=== PATIENT | male | born 1945 | race Two or more races ===

== ENCOUNTER 2017-06-05 09:39 | Day surgery (SDC) | payer MEDICARE, OTHER ==
[~2017-06-05] VITALS: Ht 170.2 cm; Wt 75.3 kg
[~2017-06-05 09:39] MED LIST: HEPARIN SODIUM 5,000 UNIT in IV NORMAL SALINE 500ML BAG 500 ML IRR ONE; HYDROmorphone 2 MG/ML VIAL IV PRN; IV RINGERS,LACTATED 1000ML 1,000 ML IV SCH; LIDOCAINE 1% PF 2 ML VIAL. ID PRN; MORPHINE SULFATE 2 MG/ML DISP.SYRIN. IV PRN; ONDANSETRON PF 4 MG/2 ML VIAL. IV PRN; PROCHLORPERAZINE 10 MG/2 ML VIAL. IV PRN; ceFAZolin 2GM PREMIX 2 GM/50 ML BAG IV ONE; fentaNYL PF VIAL 100 MCG/2 ML VIAL IV PRN
[2017-06-05] MEDS ORDERED: INSU100I13 SQ (10:42)
[2017-06-05] MEDS ORDERED: ASPI-482 PO (10:43)
[2017-06-05] MEDS ORDERED: CALC500T54 PO (10:44)
[2017-06-05] MEDS ORDERED: CALC667T PO (10:44)
[2017-06-05] MEDS ORDERED: VITA1CAP PO (10:44)
[2017-06-05] MEDS ORDERED: CARV25TA2 PO (10:45)
[2017-06-05] MEDS ORDERED: ATOR40TA59 PO (10:45)
[2017-06-05] MEDS ORDERED: FURO20TA3 PO (10:46)
[2017-06-05] MEDS ORDERED: IV NORMAL SALINE 1000ML BAG 1,000 ML IV SCH (10:48)
[2017-06-05 10:57] LABS: CALCIUM 8.8 mg/dL (8.5-10.1); CREATININE 4.4 mg/dL (0.7-1.3); GFR 13.3; POTASSIUM 4.9 mmol/L (3.5-5.1)
[2017-06-05] MEDS ORDERED: BUPIVAC MPF-EPI 0.5%-1:200000 30 ML VIAL. ONE (12:06)
[2017-06-05] MEDS ORDERED: NEOMY/BACITR/POLYMYXIN OINT PACKET. TP ONE ×2 (12:06→13:11)
[2017-06-05] MEDS ORDERED: fentaNYL PF VIAL 100 MCG/2 ML VIAL ONE (12:09)
[2017-06-05] MEDS ORDERED: NEOSTIGMINE METHYLSULFATE 5 MG/5 ML SYRINGE. ONE (12:09)
[2017-06-05] MEDS ORDERED: GLYCOPYRROLATE 1 MG/5 ML VIAL. ONE (12:09)
[2017-06-05] MEDS ORDERED: ROCURONIUM 50 MG/5 ML VIAL. ONE (12:09)
[2017-06-05] MEDS ORDERED: SEVOFLURANE > 120 MINUTES. IH ONE (12:10)
[2017-06-05] MEDS ORDERED: DEXAMETHASONE SOD PHOS 20 MG/5 ML VIAL. ONE (12:10)
[2017-06-05] MEDS ORDERED: LIDOCAINE 2% PF Vial for OR 5 ML VIAL. ONE (12:10)
[2017-06-05] MEDS ORDERED: ONDANSETRON PF 4 MG/2 ML VIAL. ONE (12:10)
[2017-06-05] MEDS ORDERED: PROPOFOL 20 ML IV ONE (12:10)
--- NOTE | 2017-06-05 13:40 | PDOC ---
BRIEF OPERATIVE NOTE Date: Jun 05, 2017 Pre-Op Diagnosis ESRD on hemodialysis, requesting a PD catheter Post-Op Diagnosis same Procedure Performed l/s placement of PD catheter Surgeon Bo Anesthesia Type: General Blood Loss 10cc IV Fluid 300cc Urine Output 75cc Specimens Obtained none Findings no adhesions Complications none Operative Note WK # [id number] VIVI HART MD Jun 05, 2017 13:40
--- NOTE | 2017-06-05 13:41 | DISCH ---
DISCHARGE INSTRUCTIONS Condition on Discharge Condition on Discharge: Stable Activity After Discharge Activity Instructions for Disc: Activity as tolerated, Avoid exertion Lifting Instructions after Dis: No heavy lifting Driving Instructions after Dis: Do not drive Diet after Discharge Diet after Discharge: Renal Dialysis Wound Incision Care Wound/Incision Care: Ice to area for comfort, Keep wound/cast CDI Follow-Up Follow up with: Bo two weeks VIVI HART MD Jun 05, 2017 13:41
--- NOTE | 2017-06-05 14:01 | OP ---
DATE OF SURGERY: 06/05/2017 PREOPERATIVE DIAGNOSIS: End-stage renal disease on hemodialysis, requesting peritoneal dialysis catheter. POSTOPERATIVE DIAGNOSIS: End-stage renal disease on hemodialysis, requesting peritoneal dialysis catheter. PROCEDURE: Laparoscopic placement of peritoneal dialysis catheter. SURGEON: Jonathan Hart MD. ANESTHESIA: General. ESTIMATED BLOOD LOSS: Less than 10 mL. INTRAVENOUS FLUID: 300 mL. URINE OUTPUT: 75 mL. INDICATIONS: The patient is a 71-year-old gentleman, on hemodialysis, requesting peritoneal dialysis catheter. OPERATIVE FINDINGS: Visual inspection of the abdomen laparoscopically showed no evidence of adhesions or pathologic abnormality. DESCRIPTION OF PROCEDURE: The patient brought to the operating suite, given a general endotracheal anesthetic and the Davalos catheter placed to dependent drainage. The abdomen was prepped and draped in usual sterile fashion. An epigastric incision was infiltrated with 0.5% Marcaine with epinephrine. A small incision made and a 5 mm Visiport used to safely gain access into the abdominal cavity. Pneumoperitoneum established at a maximum of 12 cm water pressure. Inspection carried out with results as noted above. Prior to insufflation of the abdomen, the template has been used to nicole the insertion site and access site for the catheter. The insertion site was infiltrated with local anesthetic, sharply incised and under direct vision, the Cook needle passed into the abdominal cavity. The needle was removed and the sheath was dilated. The catheter was then threaded through the sheath and the Dacron cuff was seated just above the peritoneum. The catheter was then tunneled subcutaneously through the access site, securing the second Dacron cuff in the subcutaneous tissue. Abdomen decompressed and the catheter was irrigated with 500 mL of normal saline, which are readily accepted. It drained a similar amount to dependent drainage. The catheter was then "packed" with heparinized saline. Skin incisions were closed with subcutaneous 3-0 Vicryl and the subcutaneous tissue followed by subcuticular 4-0 Monocryl and Steri-Strips for the skin. Sterile dressings applied. Davalos catheter was removed. The patient was awakened from his anesthetic and taken to the recovery room in satisfactory condition. JONATHAN HART MD DR: DOUG/monica JOB#: [id number] / [id number] JEFF Muñoz MD
[2017-06-05] MEDS ORDERED: diphenhydrAMINE 50 MG/ML VIAL ONE (14:15)
[2017-06-05] MEDS ORDERED: HYDR-971 PO (14:22)
[2017-06-05 14:25] VITALS: BP 179/56
[2017-06-05] MEDS ORDERED: DOCU100C28 PO (14:25)
[2017-06-05] MEDS ORDERED: diphenhydrAMINE HCL 25 MG CAPSULE PO PRN (14:30)
[2017-06-05] MEDS ORDERED: HYDROcodone/APAP 5/325MG 1 TAB TABLET PO PRN (14:45)
== END 2017-06-05 15:21 | disposition home or self-care (01) ==
LOC: SURG 09:39
PROVIDERS: ATTEND Surgery
DX: I12.0 Hypertensive chronic kidney disease with stage 5 chronic kidney disease or end stage renal disease (principal); E11.22 Type 2 diabetes mellitus with diabetic chronic kidney disease; N18.6 End stage renal disease; Z99.2 Dependence on renal dialysis; Z86.69 Personal history of other diseases of the nervous system and sense organs; E78.00 Pure hypercholesterolemia, unspecified; Z87.39 Personal history of other diseases of the musculoskeletal system and connective tissue; Z72.89 Other problems related to lifestyle; Z88.2 Allergy status to sulfonamides
CPT/HCPCS: 36415; 49324; 80048; 82962; C1769; J0690; J1100; J1200; J1644; J2405; J2704; J2710; J3010; J3490; J7030; J7040; J2001

== ENCOUNTER → 2019-12-25 | Outpatient (CLI) | payer MEDICARE, OTHER ==
[2019-04-15 11:18] VITALS: BP 145/69
[~2019-12-25] MED LIST changes: +ACET325T9 PO; +ACET650S PO; +AMLO10TA8 PO; +ASPI-482 PO; +ATOR20TA58 PO; +ATOR40TA59 PO; +CALC500T54 PO; +CALC667T4 PO; +CARV25TA PO; +CARV25TA2 PO; +CARV6.2511 PO; +DEXT38GE2 PO; +DEXT50IV12 IV; +DOCU100C28 PO; +FOLI0.8T3 PO; +FURO20TA3 PO; +GABA-585 PO; +GLUC1KIT IM; -HEPARIN SODIUM 5,000 UNIT in IV NORMAL SALINE 500ML BAG 500 ML IRR ONE; +HYDR-2867 PO; +HYDR-3164 PO; -HYDROmorphone 2 MG/ML VIAL IV PRN; +INSU100C SQ; +INSU100I13 SQ; -IV RINGERS,LACTATED 1000ML 1,000 ML IV SCH; +LEXAPRO20 MG PO; -LIDOCAINE 1% PF 2 ML VIAL. ID PRN; -MORPHINE SULFATE 2 MG/ML DISP.SYRIN. IV PRN; -ONDANSETRON PF 4 MG/2 ML VIAL. IV PRN; +PANT20TA2 PO; -PROCHLORPERAZINE 10 MG/2 ML VIAL. IV PRN; +SEVE800T9 PO; +VITA1CAP PO; -ceFAZolin 2GM PREMIX 2 GM/50 ML BAG IV ONE; -fentaNYL PF VIAL 100 MCG/2 ML VIAL IV PRN
== END | disposition home or self-care (01) ==
LOC: LAB 13:10
PROVIDERS: ATTEND Surgery
DX: Z11.59 Encounter for screening for other viral diseases (principal)
CPT/HCPCS: U0003-CS

== ENCOUNTER 2019-12-30 06:07 | Day surgery (SDC) | payer MEDICARE, OTHER ==
[~2019-12-30 06:07] MED LIST changes: +HEPARIN SODIUM 1,000 UNIT in IV NORMAL SALINE 100ML 100 ML IRR ONE
[2019-12-30] MEDS ORDERED: DEXAMETHASONE SOD PHOS 4 MG/ML VIAL ONE (06:30)
[2019-12-30] MEDS ORDERED: PROPOFOL 10 MG/ML (20ML) VIAL. IV ONE (06:30)
[2019-12-30] MEDS ORDERED: LIDOCAINE 2% PF 5 ML VIAL. ONE (06:30)
[2019-12-30] MEDS ORDERED: ROCURONIUM 50 MG/5 ML VIAL. ONE (06:31)
[2019-12-30] MEDS ORDERED: ONDANSETRON PF 4 MG/2 ML VIAL. ONE (06:31)
[2019-12-30] MEDS ORDERED: PROCHLORPERAZINE 10 MG/2 ML VIAL. IV PRN (07:00)
[2019-12-30] MEDS ORDERED: MORPHINE SULFATE 2 MG/ML VIAL. IV PRN (07:00)
[2019-12-30] MEDS ORDERED: IV RINGERS,LACTATED 1000ML 1,000 ML IV SCH (07:00)
[2019-12-30] MEDS ORDERED: fentaNYL PF VIAL 100 MCG/2 ML VIAL IV PRN ×2 (07:00)
[2019-12-30] MEDS ORDERED: IV NORMAL SALINE 1000ML BAG 1,000 ML IV ONE (07:00)
[2019-12-30] MEDS ORDERED: HYDROmorphone 2 MG/ML VIAL IV PRN (07:00)
[2019-12-30 07:03] LABS: BASO # 0.1 x10^3/uL (0.0-0.2); BASO % 1 % (0-3); EOS # 0.4 x10^3/uL (0.0-0.7); EOS % 3 % (0-3); HEMATOCRIT 38.2 % (39.0-53.0); HEMOGLOBIN 11.9 g/dL (13.0-17.5); LYMPH # 3.6 x10^3/uL (1.0-4.8); LYMPH % 34 % (24-48); MEAN CORPUSCULAR HEMOGLOBIN 28 pg (25-35); MEAN CORPUSCULAR HGB CONC 31 g/dL (31-37); MEAN CORPUSCULAR VOLUME 89 fL (79-100); MONO % 10 % (0-9); NEUT # 5.5 x10^3/uL (1.8-7.7); NEUT % 52 % (31-73); PLATELET COUNT 289 x10^3/uL (140-400); RED BLOOD COUNT 4.29 x10^6/uL (4.30-5.70); WHITE BLOOD COUNT 10.6 x10^3/uL (4.0-11.0)
[2019-12-30] MEDS ORDERED: INSULIN LISPRO 100 UNIT/ML 3ML VIAL for OP,RR ONLY. SQ PRN (07:15)
[2019-12-30 07:18] LABS: CALCIUM 8.7 mg/dL (8.5-10.1); CREATININE 6.5 mg/dL (0.7-1.3); GFR 8.4; POTASSIUM 4.8 mmol/L (3.5-5.1)
[2019-12-30] MEDS ORDERED: INSULIN LISPRO 100 UNIT/ML 3ML VIAL for OP,RR ONLY. SQ ONE (07:30)
[2019-12-30] MEDS ORDERED: SEVOFLURANE 61 TO 120 MINUTES. IH ONE (07:42)
[2019-12-30] MEDS ORDERED: NEOSTIGMINE METHYLSULFATE 5 MG/5 ML SYRINGE. ONE (08:29)
[2019-12-30] MEDS ORDERED: ePHEDrine PF IN SALINE 50 MG/10 ML SYRINGE. IV ONE (08:29)
[2019-12-30] MEDS ORDERED: GLYCOPYRROLATE 1 MG/5 ML VIAL. ONE (08:30)
--- NOTE | 2019-12-30 08:59 | PDOC4 ---
Operative Note Operative Note OPERATIVE NOTE: PREOPERATIVE DIAGNOSIS: Renal failure. POSTOPERATIVE DIAGNOSIS: Renal failure. PROCEDURE: Laparoscopic peritoneal dialysis catheter placement. SURGEON: Vishnu Peetrsen MD CORROSION PREVENTION METAL SPRAYER: Faustino VITAL ANESTHESIA: General. ESTIMATED BLOOD LOSS: 10 mL. SPECIMENS: None. DRAINS: None. COMPLICATIONS: None. INDICATIONS: The patient is a 74 year old male who was referred for placement of a peritoneal dialysis catheter due to progressive renal failure. The details and risks of surgery were discussed with the patient. The risks of surgery include bleeding, infection, visceral injury, pain, anesthetic risk, potential need for additional surgery or procedure. In addition, the patient is aware of the potential for catheter malfunction or dysfunction and possibility of needing revision, replacement, or removal of the catheter. They understand all this and would like to proceed. DESCRIPTION OF PROCEDURE: The patient was brought to the operating room and placed supine on the operating table. General anesthesia was performed. The abdomen was prepped with ChloraPrep and draped in a standard surgical manner. A small incision was made in the patient's left upper quadrant through which a visualized 5-mm trocar was inserted. A pneumoperitoneum was then created and the laparoscope was introduced. Initial inspection showed no significant adhesions or any other gross abnormalities. Using the placement template, the left abdomen was marked with a planned catheter exit site in the LLQ. A small incision was made to the left of the patient's midline at the marked location for the exit site of the cuff. An 8-mm trocar was inserted through this location. The coiled portion of the lower catheter was then inserted into the pelvis under direct visualization. The cuff was positioned in the rectus musculature. The coiled portion rested well in the inferior mid pelvis. The pneumoperitoneum was then relieved. An incision was then made in the left lower quadrant at the planned exit site. The proximal portion of the catheter was tunnelled subcutaneously to the exit site. The proximal cuff remained in the subcutaneous tissue a few cm away from the exit site. The catheter was then as sembled to IV tubing and tested by infusing a liter of saline. The saline passed easily into the abdomen and the bag was placed on the floor. Nearly all of the saline readily was retrieved with prompt flow. The abdominal cavity was then reinsufflated and the laparoscope was reintroduced showing no change in the catheter position and the cuff remained in the rectus. The pneumoperitoneum was relieved and the ports were removed. The catheter was then assembled to the connector tubing as per the dialysis instructions. All the incision sites were closed with 4-0 Monocryl. Steri-Strips and sterile dressing were then applied. The patient tolerated procedure well and was sent to the recovery room in stable condition. At the end of the case all counts were correct. VISHNU PETERSEN MD Dec 30, 2019 08:59
[2019-12-30] MEDS ORDERED: HYDROcodone/APAP 5/325MG 1 TAB TABLET PO ONE (09:00)
[2019-12-30] MEDS ORDERED: SUGAMMADEX SODIUM 200 MG/2 ML VIAL. IVP ONE (09:00)
--- NOTE | 2019-12-30 09:01 | DISCH ---
DISCHARGE INSTRUCTIONS Condition on Discharge Condition on Discharge: Stable Activity After Discharge Activity Instructions for Disc: Other, see below (No lifting over 20 lbs X 2 weeks) Driving Instructions after Dis: Other, see below (No driving if taking pain meds) Diet after Discharge Diet after Discharge: Renal Dialysis Follow-Up Follow up with: Dialysis Center MARINO PETERSEN MD Dec 30, 2019 09:01
[2019-12-30] MEDS ORDERED: fentaNYL PF VIAL 100 MCG/2 ML VIAL ONE (09:14)
[2019-12-30] MEDS ORDERED: HYDR-3164 PO (09:16)
[2019-12-30 09:30] VITALS: BP 128/52
== END 2019-12-30 10:38 | disposition home or self-care (01) ==
LOC: SURG 06:07
PROVIDERS: ATTEND Surgery
DX: E11.22 Type 2 diabetes mellitus with diabetic chronic kidney disease (principal); I12.0 Hypertensive chronic kidney disease with stage 5 chronic kidney disease or end stage renal disease; N18.6 End stage renal disease; E78.00 Pure hypercholesterolemia, unspecified; K21.9 Gastro-esophageal reflux disease without esophagitis; D46.9 Myelodysplastic syndrome, unspecified; Z87.891 Personal history of nicotine dependence; Z90.49 Acquired absence of other specified parts of digestive tract; Z72.89 Other problems related to lifestyle; Z79.84 Long term (current) use of oral hypoglycemic drugs
CPT/HCPCS: 36415; 49324; 80048; 82962; 85025; A7015; C1750; J1100; J1644; J1815; J2405; J2704; J3010; J3490; J0690; J2710

== ENCOUNTER → 2020-06-17 | Outpatient (CLI) | payer MEDICARE, OTHER ==
[~2020-06-17] MED LIST changes: +AMLO-187 PO; -AMLO10TA8 PO; -HEPARIN SODIUM 1,000 UNIT in IV NORMAL SALINE 100ML 100 ML IRR ONE
== END ==
LOC: LAB 11:34
PROVIDERS: ATTEND Family Medicine
DX: Z01.812 Encounter for preprocedural laboratory examination (principal); Z20.828 Contact with and (suspected) exposure to other viral communicable diseases; K92.1 Melena
CPT/HCPCS: U0003

== ENCOUNTER → 2020-06-21 | Day surgery (SDC) | payer MEDICARE, OTHER ==
[~2020-06-21] MED LIST changes: +HYDROmorphone 2 MG/ML VIAL IVP PRN; +IV NORMAL SALINE 1000ML BAG 1,000 ML IV SCH; +IV RINGERS,LACTATED 1000ML 1,000 ML IV SCH; +LIDOCAINE 2% PF 5 ML VIAL. ONE; +MORPHINE SULFATE 2 MG/ML VIAL. IVP PRN; +PROCHLORPERAZINE 10 MG/2 ML VIAL. IVP PRN; +PROPOFOL 10 MG/ML (20ML) VIAL. IV ONE; +fentaNYL PF VIAL 100 MCG/2 ML VIAL IVP PRN
[2020-06-21] MEDS: IV NORMAL SALINE 1000ML BAG 1,000 ML IV ONE (12:38)
--- NOTE | 2020-06-21 13:47 | PDOC4 ---
PROCEDURE Procedure EGD/biopsies Indication: recent melena Meds: per anesthesia Findings: E--healed reflux distally. G--normal, biopsied antrum D--Normal to 4th portion. Carlos. well. IMP: GERD Can't r/o prior lesion healed on PPI. Could have lesion(s) more distally in SB. REC: continue meds and diet as now. Await path. F/u in 2 weeks. NAMRATA ROWELL MD Jun 21, 2020 13:47
[2020-06-21 14:09] VITALS: BP 113/56
--- NOTE | 2020-06-23 15:07 | PATHOLOGY ---
[facility] [place] Accession Number: [id number] . 01 Material submitted: . stomach - ANTRUM BX . 01 Clinical history: . MELENA . 02 Diagnosis: Gastric biopsy, antrum: - Superficial slight chronic inflammation. (JPM:contract clerk; 06/23/2020) [facility] 06/23/2020 1204 Local . 02 Comment: Sections of the gastric antral biopsy reveal gastric body mucosa showing slight chronic inflammation within the superficial lamina propria. A properly controlled immunoperoxidase stain for Helicobacter is negative for Helicobacter organisms. (JPM:contract clerk; 06/23/2020) . Special stain performed: Immunoperoxidase stain for Helicobacter . 02 Electronically signed: . Sonny Robles MD, Pathologist NPI- [id number] . 01 Gross description: . The specimen is received in formalin, labeled "Sancho Crockertorre, antrum biopsy". Received is a segment of pale vera soft tissue measuring 0.7 cm in maximum dimensions. The specimen is submitted entirely in cassette A1. ([facility]; 06/22/2020) QA/[facility] 06/22/2020 1558 Local . 02 Pathologist provided ICD-10: K29.50 . 02 CPT . 503010, V00701 Specimen Comment: A courtesy copy of this report has been sent to [phone] Specimen Comment: Report sent to Performed at: 01 [facility] [address], [place] [id number] MD Juvenal Page MD Phone: [phone] Performed at: 02 [facility] [address] [place], [place] [id number] MD Sonny Robles MD Phone: [phone]
== END | disposition home or self-care (01) ==
LOC: ENDOS 11:49
PROVIDERS: ATTEND Internal Medicine Gastroenterology
DX: K92.1 Melena (principal); K29.50 Unspecified chronic gastritis without bleeding; K21.00 Gastro-esophageal reflux disease with esophagitis, without bleeding; D64.9 Anemia, unspecified; I10 Essential (primary) hypertension; K85.90 Acute pancreatitis without necrosis or infection, unspecified; E11.9 Type 2 diabetes mellitus without complications; E78.00 Pure hypercholesterolemia, unspecified; I25.2 Old myocardial infarction; N28.9 Disorder of kidney and ureter, unspecified; Z88.1 Allergy status to other antibiotic agents; Z82.49 Family history of ischemic heart disease and other diseases of the circulatory system; Z83.3 Family history of diabetes mellitus; Z80.0 Family history of malignant neoplasm of digestive organs; Z79.899 Other long term (current) drug therapy
CPT/HCPCS: 43239; 82962; 88305; 88342; J2704

== ENCOUNTER → 2020-11-18 | Outpatient (CLI) | payer MEDICARE, OTHER ==
[2020-06-21 14:09] VITALS: BP 113/56
[~2020-11-18] MED LIST changes: -HYDROmorphone 2 MG/ML VIAL IVP PRN; -IV NORMAL SALINE 1000ML BAG 1,000 ML IV SCH; -IV RINGERS,LACTATED 1000ML 1,000 ML IV SCH; -LIDOCAINE 2% PF 5 ML VIAL. ONE; -MORPHINE SULFATE 2 MG/ML VIAL. IVP PRN; -PROCHLORPERAZINE 10 MG/2 ML VIAL. IVP PRN; -PROPOFOL 10 MG/ML (20ML) VIAL. IV ONE; -fentaNYL PF VIAL 100 MCG/2 ML VIAL IVP PRN
--- NOTE | 2020-11-18 12:52 | RAD ---
EXAM: Supine AP view of the abdomen DATE: 11/18/2020 12:30 PM INDICATION: Reason: RIGHT ABDOMINAL PAIN. / Spl. Instructions: / History: COMPARISON: No Prior FINDINGS: No abnormal small or large bowel dilatation. Moderate to large volume colonic stool content. No abn ormal soft tissue mass effect. No suspicious calcifications are seen. Evaluation for free intraperi toneal gas is limited on this supine exam. Pelvic drain. Iliac stents are seen bilaterally. IMPRESSION: 1. No evidence for bowel obstruction. 2. Moderate to large volume colonic stool content, particularly in the right colon can be correlated for possible constipation. Electronically signed by: Gato Araiza MD (11/18/2020 12:49 PM) [id number]
== END ==
LOC: RAD 12:10
PROVIDERS: ATTEND Internal Medicine Nephrology
DX: R10.0 Acute abdomen (principal)
CPT/HCPCS: 74018

== ENCOUNTER → 2021-09-08 | Outpatient (CLI) | payer MEDICARE, OTHER ==
[2020-06-21 14:09] VITALS: BP 113/56
== END ==
LOC: SPEC 16:15
PROVIDERS: ATTEND Podiatrist
DX: L98.499 Non-pressure chronic ulcer of skin of other sites with unspecified severity (principal); L03.031 Cellulitis of right toe
CPT/HCPCS: 87075; 87077; 87186